=== PATIENT | female | born 1995 | race Caucasian/White ===

== ENCOUNTER 2023-06-15 14:08 | Emergency (ER) | payer SELFPAY ==
[2023-06-15 15:24] LABS: ALT/SGPT 20 U/L (13-56); AST/SGOT 11 U/L (15-37); Albumin 4.5 g/dL (3.4-5.0); Alkaline Phosphatase 54 U/L (45-117); BUN Blood Urea Nitrogen 5 mg/dL (7-18); Bicarbonate 22 mEq/L (21-32); Bilirubin Total 0.4 mg/dL (0.2-1.0); Glomerular Filtration Rate 94 ml/min (=/>90); Glucose Level 103 mg/dL (74-106); Magnesium 2.4 mg/dL (1.6-2.4); Potassium 3.3 mEq/L (3.5-5.1); Protein, Total 8.1 g/dL (6.4-8.2); Sodium Level 138 mEq/L (136-145); Troponin High Sensitivity 13.4 pg/mL (<58.9)
[2023-06-15 15:25] LABS: Absolute Lymphocytes (CBC) 1.3 K/uL (0.7-4.9); Bilirubin Direct < 0.1 mg/dL (0-0.2); Hematocrit 36.6 % (36.0-45.0); Lymphocytes % 26.2 % (15.3-44.8); MPV 8.8 fL (7.6-11.3); Platelets 270 thou/uL (152-406); RBC Red Blood Cell Count 4.07 M/uL (3.86-4.86)
[2023-06-15 15:26] LABS: Bilirubin Indirect, Calculated ND mg/dL (0.2-0.8)
[2023-06-15] MEDS ORDERED: LORazepam 2 MG/ML VIAL ONE (15:34)
[2023-06-15] MEDS ORDERED: NA CHLORIDE 0.9% 1,000 ML ONE (15:34)
--- NOTE | 2023-06-15 16:30 | EDPHYS ---
Physician Documentation [facility] Name: Delfina Ann Age: 27 yrs Sex: Female : 1995 Arrival Date: 06/15/2023 Time: 14:08 Bed 26 Private MD: ED Physician Sanford Lara HPI: 06/15 14:37 This 27 yrs old Female presents to ER via Ambulatory with complaints of Palpitations. sb4 14:38 patient presents with complaints of chest pain, anxiety, palpitations. she was admitted sb4 at [facility] for alcohol detox 1 week ago and discharged to [facility] 2 days ago. she states that she has not had any benzos at [facility] and thinks she is detoxing from either alcohol or benzos. Historical: - Allergies: 14:21 tramadol; mb9 - Home Meds: 14:21 Effexor Oral [Active]; Hydroxyzine Oral [Active]; Topamax Oral [Active]; Trazodone Oral mb9 [Active]; - PMHx: 14:21 Atrial septal defect; mb9 - PSHx: 14:21 Open heart surgery; mb9 - Immunization history:: Adult Immunizations up to date. - Social history:: Smoking status: Reported history of juuling and/or vaping. ROS: 14:38 Constitutional: Negative for fever, chills, and weight loss, sb4 14:38 Cardiovascular: Positive for chest pain, palpitations, 14:38 Psych: Positive for anxiety, 14:38 All other systems are negative, Exam: 14:38 Constitutional: This is a well developed, well nourished patient who is awake, alert, sb4 and in no acute distress. Head/Face: Normocephalic, atraumatic. Eyes: Extra-ocular motions intact. Periorbital areas with no swelling, redness, or edema. ENT: Mucous membranes moist. Respiratory: Lungs have equal breath sounds bilaterally, clear to auscultation and percussion. No rales, rhonchi or wheezes noted. No increased work of breathing, no retractions or nasal flaring. Abdomen/GI: Soft, non-tender, no distension. Skin: Warm, dry with normal turgor. Normal color with no rashes, no lesions, and no evidence of cellulitis. MS/ Extremity: Pulses equal, no cyanosis. Neurovascular intact. Full, normal range of motion. Neuro: Awake and alert, GCS 15, oriented to person, place, time, and situation. Motor strength 5/5 in all extremities. Sensory grossly intact. 14:38 Cardiovascular: Rate: tachycardic, Rhythm: regular, Pulses: no pulse deficits are appreciated, 14:38 Psych: Behavior/mood is anxious, Affect is flat, Patient has no thoughts/intents to harm self or others. Judgement / Insight is normal. Delusions/hallucinations are not present. Vital Signs: 14:18 BP 135 / 82; Pulse 111; Resp 18; Temp 98; Pulse Ox 100% ; Weight 49.9 kg; Height 5 ft. mb9 1 in. ; 16:06 BP 125 / 86; Pulse 72; Resp 18; Pulse Ox 100% on R/A; ph 17:21 BP 122 / 78; Pulse 71; Resp 18; Temp 97.2; Pulse Ox 98% ; ph 14:18 Body Mass Index 20.78 (49.90 kg, 154.94 cm) mb9 MDM: 14:17 Patient medically screened. sb4 14:38 Differential diagnosis: arrythmia, dehydration, stress disorder, alcohol withdrawal, sb4 benzodiazepine withdrawal. 16:29 Data reviewed: vital signs, nurses notes, lab test result(s), EKG, radiologic studies, sb4 and as a result, I will discharge patient. Scoring Tools HEART Score: History: ECG: Age: Risk Factors: No Risk Factors Known (0), Troponin: Total Score = 0. Counseling: I had a detailed discussion with the patient and/or guardian regarding the historical points, exam findings, and any diagnostic results supporting the discharge/admit diagnosis, lab results, radiology results, to return to the emergency department if symptoms worsen or persist or if there are any questions or concerns that arise at home. 06/15 14:35 Order name: Basic Metabolic Panel; Complete Time: 15:26 sb4 06/15 14:35 Order name: CBC with Diff; Complete Time: 15:32 sb4 06/15 14:35 Order name: D-Dimer; Complete Time: 15:36 sb4 06/15 14:35 Order name: LFT's; Complete Time: 15:26 sb4 06/15 14:35 Order name: Magnesium; Complete Time: 15:26 sb4 06/15 14:35 Order name: Troponin HS; Complete Time: 15:26 sb4 06/15 14:37 Order name: TSH; Complete Time: 15:34 sb4 06/15 14:35 Order name: XRAY Chest (1 view); Complete Time: 16:53 sb4 06/15 14:35 Order name: EKG; Complete Time: 14:35 sb4 06/15 14:35 Order name: Cardiac monitoring; Complete Time: 14:48 sb4 06/15 14:35 Order name: EKG - Nurse/Tech; Complete Time: 14:56 sb4 06/15 14:35 Order name: IV Saline Lock; Complete Time: 15:04 sb4 06/15 14:35 Order name: Labs collected and sent; Complete Time: 15:04 sb4 06/15 14:35 Order name: O2 Per Protocol; Complete Time: 14:48 sb4 06/15 14:35 Order name: O2 Sat Monitoring; Complete Time: 14:49 sb4 EC:55 Rate is 80 beats/min. Rhythm is regular, Normal Sinus Rhythm. NM interval is normal at sb4 150 msec. QRS interval is normal at 92 msec. QT interval is normal at 388 msec. No Q waves. T waves are Normal. No ST changes noted. Clinical impression: Normal ECG. Interpreted by me. Reviewed by me. Administered Medications: 15:32 Drug: NS 0.9% IV 1000 ml IV at 1 bolus Per protocol; 1000 mL bolus Route: IV; Rate: 1 ph bolus; Site: right antecubital; 17:21 Follow up: Response: No adverse reaction; IV Status: Completed infusion; IV Intake: ph 1000ml 15:32 Drug: Ativan IVP 1 mg IVP once Route: IVP; Site: right antecubital; ph 17:21 Follow up: Response: No adverse reaction; Anxiety decreased ph Disposition Summary: 06/15/23 16:30 Discharge Ordered Problem: new sb4 Symptoms: are unchanged sb4 Condition: Stable sb4 Diagnosis - Underdosing of benzodiazepines sb4 Followup: sb4 - With: Emergency Department - When: As needed - Reason: Trouble breathing, Worsening of condition Discharge Instructions: - Discharge Summary Sheet sb4 - Benzodiazepine Withdrawal sb4 Forms: - Medication Reconciliation Form sb4 - Thank You Letter sb4 - Antibiotic Education sb4 - Prescription Opioid Use sb4 - Patient Portal Instructions sb4 - Leadership Thank You Letter sb4 Addendum: 06/20/2023 10:05 I was immediately available for consultation during this patient's visit. I did not e c2 personally see the patient or guide the patient's care.. Signatures: Dispatcher [employer] Frances Zhong RN RN ph Brown, Sophia, PA-C PA-C sb4 Bernadette Marcelino RN RN mb9 Sanford Lara MD MD ec2 Corrections: (The following items were deleted from the chart) 06/15 14:24 14:21 Allergies: No Known Allergies; noemí mb9
--- NOTE | 2023-06-15 16:30 | ER ---
Nurse's Notes [facility] Name: Delfina Ann Age: 27 yrs Sex: Female : 1995 Arrival Date: 06/15/2023 Time: 14:08 Bed 26 Private MD: Diagnosis: Underdosing of benzodiazepines Presentation: 06/15 14:18 Chief complaint: Patient states: "I was at [facility] for rehab for alcohol use. They mb9 sent me here to make sure I'm ok because my HR is really fast. They think i'm detoxing from benzos. I've already detoxed from [facility] last Tuesday from alcohol. I'm having a little bit of chest pain and lots of anxiety.". Coronavirus screen: At this time, the client does not indicate any symptoms associated with coronavirus-19. Ebola Screen: No symptoms or risks identified at this time. Initial Sepsis Screen: Does the patient meet any 2 criteria? No. Patient's initial sepsis screen is negative. Does the patient have a suspected source of infection? No. Patient's initial sepsis screen is negative. Risk Assessment: Do you want to hurt yourself or someone else? Patient reports no desire to harm self or others. Onset of symptoms was June 15, 2023. 14:18 Method Of Arrival: Ambulatory 9 14:18 Acuity: PAUL 3 mb9 Triage Assessment: 14:24 General: Appears uncomfortable, Behavior is anxious. Pain: Complains of pain in chest. mb9 EENT: No signs and/or symptoms were reported regarding the EENT system. Neuro: Level of Consciousness is awake, alert, obeys commands, Oriented to person, place, time, situation, Appropriate for age. Cardiovascular: Patient's skin is warm and dry. Respiratory: Airway is patent Respiratory effort is even, unlabored, Respiratory pattern is regular, symmetrical. : No signs and/or symptoms were reported regarding the genitourinary system. Derm: Skin is pink, warm \\T\\ dry. Musculoskeletal: Range of motion: intact in all extremities. Historical: - Allergies: 14:21 tramadol; mb9 - Home Meds: 14:21 Effexor Oral [Active]; Hydroxyzine Oral [Active]; Topamax Oral [Active]; Trazodone Oral mb9 [Active]; - PMHx: 14:21 Atrial septal defect; mb9 - PSHx: 14:21 Open heart surgery; mb9 - Immunization history:: Adult Immunizations up to date. - Social history:: Smoking status: Reported history of juuling and/or vaping. Screenin:34 [facility] ED Fall Risk Assessment (Adult) History of falling in the last 3 months, ph including since admission No falls in past 3 months (0 pts) Confusion or Disorientation No (0 pts) Intoxicated or Sedated No (0 pts) Impaired Gait No (0 pts) Mobility Assist Device Used No (0 pt) Altered Elimination No (0 pt) Score/Fall Risk Level 0 - 2 = Low Risk Oriented to surroundings, Maintained a safe environment, Provided non-skid footwear, Hourly rounding (assess needs \\T\\ fall precautionary measures) done. Abuse screen: Denies threats or abuse. Denies injuries from another. Nutritional screening: No deficits noted. Tuberculosis screening: No symptoms or risk factors identified. Assessment: 15:33 General: Appears in no apparent distress. uncomfortable, slender, well groomed, ph Behavior is cooperative, appropriate for age, anxious. Pain: Complains of pain in chest. Neuro: Level of Consciousness is awake, alert, obeys commands, Oriented to person, place, time, situation. Cardiovascular: Capillary refill < 3 seconds in bilateral fingers Patient's skin is warm and dry. Rhythm is sinus tachycardia. Respiratory: Airway is patent Respiratory effort is even, unlabored. GI: No signs and/or symptoms were reported involving the gastrointestinal system. Derm: Skin is pink, warm \\T\\ dry. 17:21 Reassessment: Patient appears in no apparent distress at this time. Patient and/or ph family updated on plan of care and expected duration. Pain level reassessed. Patient is alert, oriented x 3, equal unlabored respirations, skin warm/dry/pink. Patient states feeling better. Vital Signs: 14:18 BP 135 / 82; Pulse 111; Resp 18; Temp 98; Pulse Ox 100% ; Weight 49.9 kg; Height 5 ft. mb9 1 in. ; 16:06 BP 125 / 86; Pulse 72; Resp 18; Pulse Ox 100% on R/A; ph 17:21 BP 122 / 78; Pulse 71; Resp 18; Temp 97.2; Pulse Ox 98% ; ph 14:18 Body Mass Index 20.78 (49.90 kg, 154.94 cm) mb9 ED Course: 14:10 Patient arrived in ED. mg5 14:17 Francisca Feldman PA-C is PHCP. sb4 14:17 Sanford Lara MD is Attending Physician. sb4 14:21 Triage completed. mb9 14:24 Arm band placed on. mb9 14:48 Frances Amin, RN is Primary Nurse. ph 15:03 XRAY Chest (1 view) In Process Unspecified. EDMS 15:04 Inserted saline lock: 22 gauge in right antecubital area, using aseptic technique. ds4 Blood collected. 15:06 Basic Metabolic Panel Sent. ds4 15:06 CBC with Diff Sent. ds4 15:06 D-Dimer Sent. ds4 15:06 LFT's Sent. ds4 15:06 Magnesium Sent. ds4 15:06 Troponin HS Sent. ds4 15:06 TSH Sent. ds4 15:34 Patient has correct armband on for positive identification. Bed in low position. Call ph light in reach. Side rails up X 1. Pulse ox on. NIBP on. Door closed. Noise minimized. 17:21 No provider procedures requiring assistance completed. IV discontinued, intact, ph bleeding controlled, No redness/swelling at site. Pressure dressing applied. Administered Medications: 15:32 Drug: NS 0.9% IV 1000 ml IV at 1 bolus Per protocol; 1000 mL bolus Route: IV; Rate: 1 ph bolus; Site: right antecubital; 17:21 Follow up: Response: No adverse reaction; IV Status: Completed infusion; IV Intake: ph 1000ml 15:32 Drug: Ativan IVP 1 mg IVP once Route: IVP; Site: right antecubital; ph 17:21 Follow up: Response: No adverse reaction; Anxiety decreased ph Medication: 15:35 VIS not applicable for this client. ph Intake: 17:21 IV: 1000ml; Total: 1000ml. ph Outcome: 16:30 Discharge ordered by . sb4 17:22 Discharged to Rehab Facility ph 17:22 Condition: good 17:22 Discharge instructions given to patient, Instructed on discharge instructions, follow up and referral plans. Demonstrated understanding of instructions, follow-up care, 17:23 Patient left the ED. ph Signatures: Dispatcher [employer] EDMS Malvin Pearl ds4 Frances Amin RN RN ph Francisca Feldman PA-C PA-C sb4 Bernadette Marcelino RN RN mb9 Mirtha Thomas mg5 Corrections: (The following items were deleted from the chart) 14:24 14:21 Allergies: No Known Allergies; noemí mb9
--- NOTE | 2023-06-15 16:51 | RAD REPORT ---
EXAM DESCRIPTION: Odalys Single View06/15/2023 3:01 pm CLINICAL HISTORY: CHEST PAIN COMPARISON: No comparisons TECHNIQUE: Portable AP view of the chest. FINDINGS: The lungs are clear. No pneumothorax or effusion. The cardiomediastinal contours are unre markable. Left clavicle plating. IMPRESSION: No acute cardiopulmonary process.
[2023-06-15 18:35] VITALS: BP 122/78; TEMP 97.2; O2SAT 98
--- NOTE | 2023-06-16 09:47 | EKG ---
Test Date: 2023-06-15 Test Time: 14:50:09 Machine Filler: CHANDAN MEASUREMENT RESULTS: Intervals: Rate: 80 WV: 150 QRSD: 92 QT: 388 QTc: 447 Mcgraw: P: -8 WV: 150 QRS: 96 T: 51 INTERPRETIVE STATEMENTS: Normal sinus rhythm Normal ECG No previous ECG available for comparison Electronically Signed On 06-16-23 09:45:52 CDT by Patel Dodd
== END 2023-06-15 17:23 | disposition home or self-care (01) ==
LOC: ER 14:08 → EDBD 14:08 → ER 17:23
DX: R07.9 Chest pain, unspecified (principal); T42.4X6A Underdosing of benzodiazepines, initial encounter
CPT/HCPCS: 36415; 71045; 80048; 80076; 83735; 84443; 84484; 85025; 85379; 93005; 96361; 96374; 99284; J7030